=== PATIENT | female | born 1940 | race Caucasian/White ===

== ENCOUNTER 2020-10-21 09:21 | Outpatient (CLI) | payer OTHER ==
[~2020-10-21 09:21] MED LIST: CRESTOR5 MG PO; FOSAMAX70 MG PO; PLAVIX75 MG PO; SYNTHROID75 MCG PO
== END 2020-10-21 11:06 | disposition home or self-care (01) ==
LOC: OFIC 805 09:21
PROVIDERS: ATTEND Otolaryngology Otology & Neurotology
DX: J31.0 Chronic rhinitis (principal); J34.2 Deviated nasal septum; R09.81 Nasal congestion; J30.89 Other allergic rhinitis